=== PATIENT | female | born 1985 | race Caucasian/White ===

== ENCOUNTER → 2020-11-19 17:35 | Outpatient (CLI) | payer OTHER, SELFPAY ==
[2020-11-19 19:45] LABS: Hemoglobin A1C 5.3 % (4.0-6.0)
[2020-11-23 11:21] LABS: Neisseria gonorrhoeae, NAA Negative (Negative)
== END ==
PROVIDERS: Visit Provider Family Medicine
DX: Z00.00 Encounter for general adult medical examination without abnormal findings (principal); Z87.898 Personal history of other specified conditions
CPT/HCPCS: 36415; 83036; 87491; 87591

== ENCOUNTER → 2021-02-01 13:59 | Outpatient (CLI) | payer OTHER, SELFPAY ==
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
== END ==
PROVIDERS: PCP Family Medicine; Visit Provider Nurse Practitioner Family
DX: M79.641 Pain in right hand (principal); S69.91XA Unspecified injury of right wrist, hand and finger(s), initial encounter
CPT/HCPCS: 73130

== ENCOUNTER 2021-02-23 22:22 | Emergency (ER) | payer OTHER, SELFPAY ==
[2021-02-23 23:02] VITALS: BP 129/96; PULSE 92; PULSE 97; RESP 17; TEMP 36.8; O2SAT 95; O2SAT 97; BMI 31.6
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
[2021-02-24 00:12] VITALS: BP 141/90; PULSE 86; RESP 18; TEMP 36.8; O2SAT 99
== END 2021-02-24 00:17 | disposition home or self-care (01) ==
PROVIDERS: Emergency Provider Emergency Medicine; PCP Nurse Practitioner Family
DX: S62.367A Nondisplaced fracture of neck of fifth metacarpal bone, left hand, initial encounter for closed fracture (principal); W22.8XXA Striking against or struck by other objects, initial encounter; Y92.019 Unspecified place in single-family (private) house as the place of occurrence of the external cause; N93.0 Postcoital and contact bleeding
CPT/HCPCS: 73130; 99282

== ENCOUNTER 2022-10-07 17:23 | Emergency (ER) | payer OTHER, SELFPAY ==
[2022-10-07 18:25] VITALS: BP 109/78; PULSE 77; RESP 19; TEMP 36.8; O2SAT 97; BMI 32.9
[2022-10-07 18:33] LABS: Apearance,Urine Cloudy (Clear); Bilirubin,Urine Negative (Negative); Blood, Urine Negative (Negative); Color,Urine Dark Yellow (Yellow); Glucose,Urine (UA) Negative (Negative); Ketones,Urine Negative (Negative); Protein,Urine Negative (Negative); Specific Gravity, Urine 1.025 (1.005-1.030); UTC Leukocyte Esterase,Urine Negative (Negative); UTC Nitrate,Urine Negative (Negative); Urobilinogen,Urine 0.2 EU/dl (0.2)
--- NOTE | 2022-10-07 18:53 | EXP.UTC ---
Discharge Plan Disposition Patient Disposition: Home, Self-Care Condition: Good Prescriptions Prescriptions: New cephalexin 500 mg capsule 500 mg PO BID 5 Days Qty: 10 0RF phenazopyridine [Pyridium] 200 mg tablet 200 mg PO Q8H 2 Days Qty: 6 0RF Referrals Follow up/Referrals: Provider,Referral, MD [Primary Care Provider] - See instructions Activity Restrictions/Add. Instructions Additional Instructions/Restrictions: *Increase fluids. Water not Soda or Tea *Start antibiotic immediately and be sure to take as ordered for the FULL length of time although you should start to see improvement over the next 48 hours *Pyridium as needed Remember this medication will turn your urine . This is normal but it will stain what ever it gets on *You should not use Pyridium for more than 48 hours. If so , follow up with your primary physician to review urine culture and ensure that antibiotic is adequate for infection *Be SURE to follow up anytime for new or worsening symptoms with your family doctor. AND in 48 hours for urine culture results with your family doctor, if you do not have a doctor then you may call back to the [facility] for urine culture results and further treatment. We do recommend that you choose and establish care with a Primary Care Physician. ?AND follow up with them ?in 10-14 days to repeat UA to ensure infection is resolved and blood no longer present *Be sure to let your PCP know that we sent urine cultures from the [facility] so they can follow up to ensure that you area the on the correct antibiotic Call your doctor office and make appointment for 48 hours (2 days from today) ?to follow up and get the results of your urine culture and further treatment Clinical Impressions Clinical Impression: Dysuria Instructions Patient Instructions: DI for Urinary Tract Infection (UTI), Cephalexin Discharge ED Provider: Chelsea Dejesus [facility] HPI General Stated complaint: UTI Mode of Arrival: Ambulatory Source of Information: Patient Limitations: No Limitations Time Seen by Provider: 10/07/22 18:53 Description of Symptoms (Recalled from Triage Doc. by RN): PATIENT C/O FREQUENT URINATION, AND BLADDER PAIN AND PRESSURE X 4 DAYS HEENT Symptoms (Recalled from RN notes): No Resp Symptoms (Recalled from RN notes): No Skin Symptoms (Recalled from RN notes): No MS Symptoms (Recalled from RN notes): No Functional Status (Recalled from RN notes): WNL History of Present Illness Provider Complaint: Patient states that she feels like she has a UTI States that she has been having burning with urination, urinary frequency, and pressure when she urinates States that feels like it does when she has a UTI Related Data Previous Rx's Medication Instructions Recorded cephalexin 500 mg capsule 500 mg PO BID 5 days #10 caps 10/07/22 phenazopyridine 200 mg tablet 200 mg PO Q8H pain 2 days #6 tabs 10/07/22 (Pyridium) Allergies Allergy/AdvReac Type Severity Reaction Status Date / Time No Known Allergies Allergy Verified 10/07/22 18:41 Worker's Comp Is this a Worker's Comp case?: No [facility] Disclaimer: The information contained in this section may have been updated after the patient was seen, as this information can be updated by other users. Medical History (Updated 10/07/22 @ 19:03 by Chelsea Dejesus APRN) Anxiety Depression History of gastroesophageal reflux (GERD) Kidney stone Liver disease Migraine Urinary tract infection Surgical History (Updated 10/07/22 @ 18:40 by Gabi Sanchez RN) History of section History of hysterectomy Social History (Updated 10/07/22 @ 18:40 by Gabi Sanchez RN) Smoking Status: Unknown if ever smoked alcohol intake: never substance use type: heroin, amphetamines and methamphetamine current occupational status: employed Travel in the last 8 weeks: None household members: significant other ROS Obtained: Yes All systems reviewed & no additional complaints ex
[2022-10-07 19:07] VITALS: BP 109/78; PULSE 77; RESP 19; TEMP 36.8; O2SAT 97
== END 2022-10-07 19:08 | disposition home or self-care (01) ==
PROVIDERS: Emergency Provider Nurse Practitioner
DX: N39.0 Urinary tract infection, site not specified (principal); R39.89 Other symptoms and signs involving the genitourinary system; K21.9 Gastro-esophageal reflux disease without esophagitis; K76.9 Liver disease, unspecified; G43.909 Migraine, unspecified, not intractable, without status migrainosus; F32.A Depression, unspecified; F41.9 Anxiety disorder, unspecified; Z87.442 Personal history of urinary calculi
CPT/HCPCS: 81003; 87086; 99213; G0463

== ENCOUNTER 2023-07-02 18:17 | Emergency (ER) | payer OTHER, SELFPAY ==
[2023-07-02 18:30] VITALS: BP 116/81; PULSE 67; RESP 20; TEMP 36.6; O2SAT 98; BMI 35.6
--- NOTE | 2023-07-02 18:37 | EXP.UTC ---
Discharge Plan Disposition Patient Disposition: Home, Self-Care Condition: Good Prescriptions Prescriptions: New cephalexin 500 mg capsule 500 mg PO QID Qty: 40 0RF mupirocin 2 % ointment 1 applic topical TID 7 Days Qty: 15 0RF No Action omeprazole 40 mg capsule,delayed release(DR/EC) 40 mg PO DAILY buprenorphine-naloxone 8-2 mg tablet, sublingual 1 tab SUBLINGUAL DAILY Patient Comments: DISSOLVE 2 TABLETS UNDER THE TONGUE ONCE DAILY bupropion HCl 300 mg tablet extended release 24 hr 300 mg PO DAILY Referrals Follow up/Referrals: Josie Newell APRN [Primary Care Provider] - See instructions Zully Correa DPM [Staff Physician] - See instructions Activity Restrictions/Add. Instructions Additional Instructions/Restrictions: Rest the extremity, Elevate the extremity as tolerated while you are resting. Take ibuprofen for pain. Take the medication and apply the topical medication as directed. Follow up with Dr. Correa (podiatry) if you continue to have issues with this. I put in a referral but you need to call her office and schedule an appointment. Follow up with your regular doctor. GO TO THE ER FOR ANY WORSENING SYMPTOMS Clinical Impressions Clinical Impression: Cellulitis of left foot Stand Alone Forms Stand Alone Forms: Work/School Release Instructions Patient Instructions: Cellulitis Discharge ED Provider: Eric Tariq [facility] General Stated complaint: spot on Left foot Time Seen by Provider: 07/02/23 18:37 History of Present Illness Provider Complaint: She states that for the past 3 days she has had a red area on the top of her left foot. Related Data Home Medications Medication Instructions Recorded Confirmed buprenorphine 8 mg-naloxone 2 mg 1 tab sublingual DAILY Substance 07/02/23 07/02/23 sublingual tablet abuse maintenence bupropion HCl 300 mg 24 hr tablet, 300 mg PO DAILY Depression 07/02/23 07/02/23 extended release omeprazole 40 mg capsule,delayed 40 mg PO DAILY GERD 07/02/23 07/02/23 release Previous Rx's Medication Instructions Recorded cephalexin 500 mg capsule 500 mg PO QID #40 caps 07/02/23 mupirocin 2 % topical ointment 1 applic topical TID 7 days #15 07/02/23 grams Allergies Allergy/AdvReac Type Severity Reaction Status Date / Time No Known Allergies Allergy Verified 10/07/22 18:41 PFSH PFSH Disclaimer: The information contained in this section may have been updated after the patient was seen, as this information can be updated by other users. Medical History (Updated 07/02/23 @ 18:51 by Eric Tariq APRN) Anxiety Depression History of gastroesophageal reflux (GERD) Kidney stone Liver disease Migraine Urinary tract infection Surgical History (Updated 10/07/22 @ 18:40 by Gabi Sanchez RN) History of section History of hysterectomy Social History (Updated 10/07/22 @ 19:03 by Chelsea Dejesus APRN) Smoking Status: Unknown if ever smoked alcohol intake: never substance use type: heroin, amphetamines and methamphetamine current occupational status: employed Travel in the last 8 weeks: None household members: significant other ROS Obtained: Yes All systems reviewed & no additional complaints except as documented Constitutional Constitutional: Denies chills and Denies fever(s) Eyes Eyes: Denies eye discharge ENT Ears, Nose, Mouth, and Throat: Denies dizziness, Denies otalgia and Denies sore throat Cardiovascular Cardiovascular: Denies chest pain Respiratory Respiratory: Denies shortness of breath, Denies chest congestion, Denies cough, Denies stridor and Denies wheezing Gastrointestinal Gastrointestingal: Denies nausea or vomiting Musculoskeletal Musculoskeletal: Reports system reviewed and no additional complaints, except as documented and Denies arthralgias Integumentary/Breasts Skin/Breast: Reports as per HPI Neurologic Neurologic: Denies melissaz
[2023-07-02 18:53] VITALS: BP 116/81; PULSE 67; RESP 20; TEMP 36.6; O2SAT 98
== END 2023-07-02 18:57 | disposition home or self-care (01) ==
PROVIDERS: Emergency Provider Nurse Practitioner Family; PCP Nurse Practitioner Family
DX: L03.116 Cellulitis of left lower limb (principal); K21.9 Gastro-esophageal reflux disease without esophagitis; F41.9 Anxiety disorder, unspecified; F32.A Depression, unspecified
CPT/HCPCS: 99212; 99214; G0463

== ENCOUNTER 2023-09-17 13:55 | Emergency (ER) | payer OTHER, SELFPAY ==
[2023-09-17 14:15] VITALS: BP 121/80; PULSE 89; RESP 20; TEMP 36.9; O2SAT 95; BMI 33.5
--- NOTE | 2023-09-17 14:37 | EXP.UTC ---
Discharge Plan Disposition Patient Disposition: Home, Self-Care Condition: Good Prescriptions Prescriptions: No Action omeprazole 40 mg capsule,delayed release(DR/EC) 40 mg PO DAILY buprenorphine-naloxone 8-2 mg tablet, sublingual 1 tab SUBLINGUAL DAILY Patient Comments: DISSOLVE 2 TABLETS UNDER THE TONGUE ONCE DAILY bupropion HCl 300 mg tablet extended release 24 hr 300 mg PO DAILY Referrals Follow up/Referrals: Josie Newell APRN [Primary Care Provider] - See instructions Activity Restrictions/Add. Instructions Additional Instructions/Restrictions: Keep appointment as scheduled for your Colonoscopy and other testing Keep a food and drink diary until then to see what you may be eating or drinking that is causing your diarrhea You was discharged home with Diarrhea Panel order collect and bring back to outpatient lab and follow up with your Family Doctor the middle of next week for the results Return if needed Straight to ER if any life threatening symptoms Clinical Impressions Clinical Impression: Diarrhea Qualifiers: Diarrhea type: unspecified type Qualified Code(s): R19.7 - Diarrhea, unspecified Stand Alone Forms Stand Alone Forms: Work/School Release Instructions Patient Instructions: Diarrhea Discharge ED Provider: Chelsea Dejesus [facility] General Stated complaint: DIARRHEA Mode of Arrival: Ambulatory Source of Information: Patient Limitations: No Limitations Time Seen by Provider: 09/17/23 14:37 Description of Symptoms (Recalled from Triage Doc. by RN): PATIENT C/O DIARRHEA FOR OVER 24 HOURS. SHE STATES THESE EPISODES HAVE BEEN HAPPENING FOR 18 MONTHS AND USUALLY LASTS 2-3 DAYS HEENT Symptoms (Recalled from RN notes): No Resp Symptoms (Recalled from RN notes): No Skin Symptoms (Recalled from RN notes): No MS Symptoms (Recalled from RN notes): No Functional Status (Recalled from RN notes): WNL History of Present Illness Provider Complaint: Patient states that since she moved back in with her mother she has been having diarrhea on and off States that for the last 18mths she has diarrhea mainly when she is at home States that she has seen her PCP and is scheduled for Colonoscopy and other tests in the next couple of weeks but started again with the diarrhea yesterday States that she wanted to come in to have it documented somewhere else that she was having diarrhea issues denies any other complaints Related Data Home Medications Medication Instructions Recorded Confirmed buprenorphine 8 mg-naloxone 2 mg 1 tab sublingual DAILY Substance 08/31/23 11/16/23 sublingual tablet abuse maintenence bupropion HCl 300 mg 24 hr tablet, 300 mg PO DAILY Depression 07/02/23 09/17/23 extended release omeprazole 40 mg capsule,delayed 40 mg PO DAILY GERD 07/02/23 09/17/23 release Allergies Allergy/AdvReac Type Severity Reaction Status Date / Time No Known Allergies Allergy Verified 10/07/22 18:41 Worker's Comp Is this a Worker's Comp case?: No [facility] Disclaimer: The information contained in this section may have been updated after the patient was seen, as this information can be updated by other users. Medical History (Updated 09/17/23 @ 14:43 by Chelsea Dejesus APRN) Anxiety Depression History of gastroesophageal reflux (GERD) Kidney stone Liver disease Migraine Urinary tract infection Surgical History (Updated 10/07/22 @ 18:40 by Gabi Sanchez RN) History of section History of hysterectomy Social History (Updated 10/07/22 @ 19:03 by Chelsea Dejesus APRN) Smoking Status: Unknown if ever smoked alcohol intake: never substance use type: heroin, amphetamines and methamphetamine current occupational status: employed Travel in the last 8 weeks: None household members: significant other ROS Obtained: Yes All systems reviewed & no additional complaints except as documented and Yes Systems reviewed as appropriate & no additional c
[2023-09-17 14:45] VITALS: BP 121/80; PULSE 89; RESP 20; TEMP 36.9; O2SAT 95
== END 2023-09-17 14:48 | disposition home or self-care (01) ==
PROVIDERS: Emergency Provider Nurse Practitioner; PCP Nurse Practitioner Family
DX: R19.7 Diarrhea, unspecified (principal); K21.9 Gastro-esophageal reflux disease without esophagitis; F41.9 Anxiety disorder, unspecified; F32.A Depression, unspecified
CPT/HCPCS: 99212; 99213; G0463

== ENCOUNTER → 2023-09-28 10:30 | Outpatient (CLI) | payer OTHER, SELFPAY ==
[2023-09-28 10:35] LABS: Adenovirus F 40/41, stool Not Detected (NotDetected); Astrovirus Not Detected (NotDetected); Campylobacter Not Detected (NotDetected); Clostridium Difficile A/B, PCR Not Detected (NotDetected); Cryptosporidium Not Detected (NotDetected); Cyclospora Cayetanesis Not Detected (NotDetected); Entamoeba histolytica Not Detected (NotDetected); Enteroaggregative E coli Not Detected (NotDetected); Enteropathogenic E coli Not Detected (NotDetected); Enterotoxigenic E coli Not Detected (NotDetected); Giardia lamblia Not Detected (NotDetected); Norovirus Not Detected (NotDetected); Plesimonas Shigalloides, PCR Not Detected (NotDetected); Rotavirus A Not Detected (NotDetected); Salmonella, PCR Not Detected (NotDetected); Shiga-like toxin E coli Not Detected (NotDetected); Shigella Enterovasive E coli Not Detected (NotDetected); Vibrio Cholerae Not Detected (NotDetected); Vibrio, PCR Not Detected (NotDetected); Yersinia Entercolitica, PCR Not Detected (NotDetected)
[2023-10-01 08:06] LABS: Sapovirus Not Detected (NotDetected)
== END ==
PROVIDERS: PCP Nurse Practitioner Family; Visit Provider Nurse Practitioner
DX: R19.7 Diarrhea, unspecified (principal)
CPT/HCPCS: 87507

== ENCOUNTER → 2023-09-28 10:35 | Outpatient (CLI) | payer OTHER, SELFPAY | PROVIDERS: PCP Internal Medicine; Visit Provider Internal Medicine | DX: R19.7 Diarrhea, unspecified (principal) ==

== ENCOUNTER 2024-01-13 13:35 | Emergency (ER) | payer OTHER, SELFPAY ==
[2024-01-13 14:00] VITALS: BP 136/97; PULSE 78; RESP 18; TEMP 37; O2SAT 98; BMI 32.4
--- NOTE | 2024-01-13 14:06 | EXP.UTC ---
Discharge Plan Disposition Patient Disposition: Home, Self-Care Condition: Good Prescriptions Prescriptions: New amoxicillin 875 mg tablet 875 mg PO Q12H Qty: 20 0RF benzonatate 100 mg capsule 100 mg PO TIDP PRN (Reason: Cough) Qty: 30 0RF methylprednisolone 4 mg Tablets,Dose Pack 4 mg PO DIRECTED 6 Days Qty: 21 0RF Rx Instructions: Take 1 pack as directed for 6 days guaifenesin [Mucinex] 600 mg tablet extended release 12hr 600 - 1,200 mg PO BIDP PRN (Reason: Congestion) Qty: 30 0RF oseltamivir [Tamiflu] 75 mg capsule 75 mg PO BID Qty: 10 0RF No Action omeprazole 40 mg capsule,delayed release(DR/EC) 40 mg PO DAILY buprenorphine-naloxone 8-2 mg tablet, sublingual 1 tab SUBLINGUAL DAILY Patient Comments: DISSOLVE 2 TABLETS UNDER THE TONGUE ONCE DAILY bupropion HCl 300 mg tablet extended release 24 hr 300 mg PO DAILY Referrals Follow up/Referrals: Josie Newell APRN [Primary Care Provider] - See instructions Activity Restrictions/Add. Instructions Additional Instructions/Restrictions: Drink plenty of fluids. Take tylenol or ibuprofen for pain or fever. Take the medications as directed. Follow up with your regular doctor. GO TO THE ER FOR ANY WORSENING SYMPTOMS Clinical Impressions Clinical Impression: Influenza A, Pharyngitis Stand Alone Forms Stand Alone Forms: Work/School Release Instructions Patient Instructions: DI for Pharyngitis/Tonsillopharyngitis -- Adult, DI for Acute Bronchitis, DI for Viral Syndrome Discharge ED Provider: Eric Tariq [facility] General Stated complaint: sore throat, joint pain congestion Time Seen by Provider: 01/13/24 14:06 History of Present Illness Provider Complaint: She states that for the past 1 day she has had fever, chills, body aches, cough, sore throat and malaise. Related Data Home Medications Medication Instructions Recorded Confirmed buprenorphine 8 mg-naloxone 2 mg 1 tab sublingual DAILY Substance 07/02/23 01/13/24 sublingual tablet abuse maintenence bupropion HCl 300 mg 24 hr tablet, 300 mg PO DAILY Depression 07/02/23 01/13/24 extended release omeprazole 40 mg capsule,delayed 40 mg PO DAILY GERD 07/02/23 01/13/24 release Previous Rx's Medication Instructions Recorded amoxicillin 875 mg tablet 875 mg PO Q12H #20 tabs 01/13/24 benzonatate 100 mg capsule 100 mg PO TIDP PRN Cough #30 caps 01/13/24 guaifenesin 600 mg tablet, 600 - 1,200 mg (1 - 2 x 600 mg) PO 01/13/24 extended release 12 hr (Mucinex) BIDP PRN Congestion #30 tabs methylprednisolone 4 mg tablets in 4 mg PO DIRECTED 6 days #21 tabs 01/13/24 a dose pack oseltamivir 75 mg capsule (Tamiflu) 75 mg PO BID #10 caps 01/13/24 Allergies Allergy/AdvReac Type Severity Reaction Status Date / Time No Known Allergies Allergy Verified 01/13/24 14:16 [facility] Disclaimer: The information contained in this section may have been updated after the patient was seen, as this information can be updated by other users. Medical History (Updated 01/13/24 @ 20:01 by Eric Tariq APRN) Liver disease Depression Anxiety Migraine Urinary tract infection Kidney stone History of gastroesophageal reflux (GERD) Surgical History History of section History of hysterectomy Social History Smoking Status: Unknown if ever smoked alcohol intake: never substance use type: heroin, amphetamines and methamphetamine current occupational status: employed Travel in the last 8 weeks: None household members: significant other ROS Obtained: Yes All systems reviewed & no additional complaints except as documented Constitutional Constitutional: Reports chills and Reports fever(s) Eyes Eyes: Denies eye discharge ENT Ears, Nose, Mouth, and Throat: Reports as per HPI Cardiovascular Cardiovascular: Denies chest pain Respiratory Respiratory: Denies chest congestion and Reports cough Gastrointestinal Gastrointestingal: Reports nausea; Denies abdominal pain, constipation, cramping, diarrhea or vomiting Musculoskeletal Musculoskeletal: Denies arthralgias Integumentary/Breasts Skin/Breast: Denies rash Neurologic Neurologic: Denies paresthesias Physical Exam General General appearance: alert and in no apparent distress Head Head exam: atraumatic, normocephalic and normal inspection Eye Eye exam: Present normal appearance, PERRL and EOMI ENT ENT exam: Present mucous membranes moist and normal external ear exam Expanded ENT Exam TM/Canal exam: Bilateral TM: erythema and bulging Nose exam: Absent sinus tenderness Mouth exam: Present normal external inspection; Absent drooling Teeth exam: Present normal inspection Throat exam: Present tonsillar erythema, tonsillomegaly and tonsillar exudate Neck Neck exam: Present normal inspection, full ROM and trachea midline; Absent tenderness, meningismus or lymphadenopathy Chest Chest inspection: Present normal inspection and symmetric chest wall rise; Absent tenderness Respiratory Respiratory exam: Present normal lung sounds bilaterally; Absent respiratory distress, wheezes, stridor or accessory muscle use Cardiovascular Cardiovascular exam: Present regular rate and normal rhythm; Absent systolic murmur or diastolic murmur Abdominal Exam Abdominal exam: Present soft and normal bowel sounds; Absent distention, tenderness, guarding, rebound or rigidity Extremities Exam Extremities exam: Present normal inspection and normal capillary refill; Absent calf tenderness Back Exam Back exam: Present normal inspection and full ROM; Absent tenderness, CVA tenderness (R) or CVA tenderness (L) Neurological Exam Neurological exam: Present alert, oriented X3 and CN II-XII intact Psychiatric Psychiatric exam: Present normal affect and normal mood Skin Skin exam: Present warm, dry, intact and normal color Medical Decision Making Medical Records Medical records reviewed: No I reviewed the patient's medical records. Roderick Inquiry Pt receiving controlled substance: No Lab Data Lab results reviewed: Yes I reviewed the patient's lab results.
[2024-01-13 14:23] LABS: UTC Influenza A Antigen Negative (Negative); UTC Influenza B Antigen Negative (Negative); UTC Strep Screen (Rapid) Negative (Negative)
--- NOTE | 2024-01-13 14:55 | PC.NURSE ---
Send rapid flu/covid up to lab
[2024-01-13 15:01] VITALS: BP 136/97; PULSE 78; RESP 18; TEMP 37; O2SAT 98
[2024-01-13 15:03] LABS: Coronavirus 19, PCR Not Detected (NotDetected); Influenza B, PCR Not Detected (NotDetected)
[2024-01-13 16:01] LABS: Influenza A, PCR Detected (NotDetected)
== END 2024-01-13 15:01 | disposition home or self-care (01) ==
PROVIDERS: Emergency Provider Nurse Practitioner Family; PCP Nurse Practitioner Family
DX: J10.1 Influenza due to other identified influenza virus with other respiratory manifestations (principal); R05.9 Cough, unspecified; R07.0 Pain in throat; R50.9 Fever, unspecified; R53.81 Other malaise; F32.A Depression, unspecified; F41.1 Generalized anxiety disorder
CPT/HCPCS: 87636; 87804; 87880; 99212; 99214; G0463

== ENCOUNTER 2024-05-10 16:18 | Emergency (ER) | payer OTHER, SELFPAY ==
--- NOTE | 2024-05-10 16:48 | EXP.UTC ---
Discharge Plan Disposition Patient Disposition: Home, Self-Care Condition: Good Prescriptions Prescriptions: New acetic acid 2 % solution 3 drp Ear-Both Q6H 7 Days Qty: 15 0RF Rx Instructions: apply to (cotton) wick; replace wick every 24 hours permethrin 5 % cream 1 applic topical Q14D Qty: 60 0RF Rx Instructions: apply second treatment 14 days after first treatment if live lice remain Lice Treatment 1 % liquid 60 ml topical ONCE Qty: 60 0RF Rx Instructions: Apply to hair, leave on for up to 10 minutes, then rinse out of hair. No Action amoxicillin 875 mg tablet 875 mg PO Q12H Qty: 20 0RF benzonatate 100 mg capsule 100 mg PO TIDP PRN (Reason: Cough) Qty: 30 0RF methylprednisolone 4 mg Tablets,Dose Pack 4 mg PO DIRECTED 6 Days Qty: 21 0RF Rx Instructions: Take 1 pack as directed for 6 days guaifenesin [Mucinex] 600 mg tablet extended release 12hr 600 - 1,200 mg PO BIDP PRN (Reason: Congestion) Qty: 30 0RF oseltamivir [Tamiflu] 75 mg capsule 75 mg PO BID Qty: 10 0RF omeprazole 40 mg capsule,delayed release(DR/EC) 40 mg PO DAILY buprenorphine-naloxone 8-2 mg tablet, sublingual 1 tab SUBLINGUAL DAILY Patient Comments: DISSOLVE 2 TABLETS UNDER THE TONGUE ONCE DAILY bupropion HCl 300 mg tablet extended release 24 hr 300 mg PO DAILY Referrals Follow up/Referrals: Josie Newell APRN [Primary Care Provider] - See instructions Activity Restrictions/Add. Instructions Additional Instructions/Restrictions: Use the medications as directed. Use the ear drops as directed. Follow up with your primary care physician. GO TO THE ER FOR WORSENING SYMPTOMS OR CONCERNS Clinical Impressions Clinical Impression: Infestation, mites Instructions Patient Instructions: How to Instill Ear Drops, Permethrin Topical Discharge ED Provider: Eric Tariq [facility] [place] HPI General Stated complaint: ears hurting, check scalp for lice Time Seen by Provider: 05/10/24 16:48 History of Present Illness Provider Complaint: She states that her dog was diagnosed with ear mites yesterday. Since then, she has been having severe scalp itching and bilateral ear itching Related Data Home Medications Medication Instructions Recorded Confirmed buprenorphine 8 mg-naloxone 2 mg 1 tab sublingual DAILY Substance 07/02/23 01/13/24 sublingual tablet abuse maintenence bupropion HCl 300 mg 24 hr tablet, 300 mg PO DAILY Depression 07/02/23 01/13/24 extended release omeprazole 40 mg capsule,delayed 40 mg PO DAILY GERD 07/02/23 01/13/24 release Previous Rx's Medication Instructions Recorded amoxicillin 875 mg tablet 875 mg PO Q12H #20 tabs 01/13/24 benzonatate 100 mg capsule 100 mg PO TIDP PRN Cough #30 caps 01/13/24 guaifenesin 600 mg tablet, 600 - 1,200 mg (1 - 2 x 600 mg) PO 01/13/24 extended release 12 hr (Mucinex) BIDP PRN Congestion #30 tabs methylprednisolone 4 mg tablets in 4 mg PO DIRECTED 6 days #21 tabs 01/13/24 a dose pack oseltamivir 75 mg capsule (Tamiflu) 75 mg PO BID #10 caps 01/13/24 acetic acid 2 % ear solution 3 drp Ear-Both Q6H 7 days #15 mL 05/10/24 permethrin 1 % topical liquid 60 ml topical ONCE #60 mL 05/10/24 (Lice Treatment) permethrin 5 % topical cream 1 applic topical Q14D 2 doses #60 05/10/24 grams Allergies Allergy/AdvReac Type Severity Reaction Status Date / Time No Known Allergies Allergy Verified 05/10/24 17:05 [facility] Disclaimer: The information contained in this section may have been updated after the patient was seen, as this information can be updated by other users. Medical History (Updated 05/10/24 @ 17:14 by Eric Tariq APRN) Liver disease Depression Anxiety Migraine Urinary tract infection Kidney stone History of gastroesophageal reflux (GERD) Surgical History History of section History of hysterectomy Social History Smoking Status: Unknown if ever smoked alcohol intake: never substance use type: heroin, amphetamines and methamphetamine current occupational status: employed Travel in the last 8 weeks: None household members: significant other ROS Obtained: Yes All systems reviewed & no additional complaints except as documented Constitutional Constitutional: Denies chills and Denies fever(s) Eyes Eyes: Denies eye discharge ENT Ears, Nose, Mouth, and Throat: Denies dizziness, Denies otalgia and Denies sore throat Cardiovascular Cardiovascular: Denies chest pain Respiratory Respiratory: Denies shortness of breath, Denies chest congestion, Denies cough, Denies stridor and Denies wheezing Gastrointestinal Gastrointestingal: Denies nausea or vomiting Musculoskeletal Musculoskeletal: Reports system reviewed and no additional complaints, except as documented and Denies arthralgias Integumentary/Breasts Skin/Breast: Denies rash Neurologic Neurologic: Denies dizziness and Denies paresthesias Allergic/Immunologic Allergic/Immunologic: Denies wheezing Physical Exam General General appearance: alert and in no apparent distress Head Head exam: atraumatic, normocephalic and normal inspection Eye Eye exam: Present normal appearance, PERRL and EOMI ENT ENT exam: Present normal exam, normal oropharynx, mucous membranes moist, TM's normal bilaterally and normal external ear exam Neck Neck exam: Present normal inspection, full ROM and trachea midline; Absent meningismus or lymphadenopathy Chest Chest inspection: Present normal inspection and symmetric chest wall rise; Absent tenderness Respiratory Respiratory exam: Present normal lung sounds bilaterally; Absent respiratory distress Cardiovascular Cardiovascular exam: Present regular rate and normal rhythm; Absent JVD Abdominal Exam Abdominal exam: Present soft and normal bowel sounds; Absent distention, tenderness or guarding Extremities Exam Extremities exam: Present normal inspection, full ROM and normal capillary refill; Absent calf tenderness Back Exam Back exam: Present normal inspection; Absent tenderness Neurological Exam Neurological exam: Present alert and oriented X3 Psychiatric Psychiatric exam: Present normal affect and normal mood Skin Skin exam: Present warm, dry, intact and normal color Lymphatic Lymphatic Findings: no adenopathy Medical Decision Making Medical Records Medical records reviewed: No I reviewed the patient's medical records. Roderick Inquiry Pt receiving controlled substance: No
[2024-05-10 16:58] VITALS: BP 136/79; PULSE 70; RESP 18; TEMP 36.6; O2SAT 98; BMI 31.4
[2024-05-10 17:21] VITALS: BP 136/79; PULSE 70; RESP 18; TEMP 36.6
== END 2024-05-10 17:21 | disposition home or self-care (01) ==
PROVIDERS: Emergency Provider Nurse Practitioner Family; PCP Nurse Practitioner Family
DX: B88.9 Infestation, unspecified (principal); L29.9 Pruritus, unspecified
CPT/HCPCS: 99212; 99214; G0463